=== PATIENT | female | born 1970 | race Caucasian/White ===

== ENCOUNTER 2017-02-25 09:34 | Day surgery (SDC) | payer BC ==
--- NOTE | 2017-02-25 06:39 | History and Physical Report ---
DATE: 02/25/2017. CHIEF COMPLAINT AND HISTORY OF CHIEF COMPLAINT: This patient presents with a postlaminectomy radiculitis. Diagnostics confirmed fusion of the lumbar spine. Due to the failure of all therapies, a spinal cord stimulation trial was conducted on 01/21/2017 with greater than 75 percent pain control. Due to the failure of all therapies and the success of the trial, she presents for implantation of a permanent system. PAST MEDICAL HISTORY: Noncontributory. PAST SURGICAL HISTORY: Lumbar laminectomy. EMPLOYMENT STATUS: She works records custodian. MEDICATIONS ON ADMISSION: To be provided. ALLERGIES: None. REVIEW OF SYSTEMS: The patient is appropriate and in no acute distress. The remainder of the systems review shows degenerative arthritis. SOCIAL HISTORY: Caffeine. FAMILY HISTORY: Hypertension, cancer. PHYSICAL EXAMINATION: General: Height is 5 feet, 6 inches. Weight is 200 pounds. Vital Signs: Not available. HEENT: Within normal limits. Lungs: Clear. Heart: Regular rate and rhythm. Abdomen: Nontender. Musculoskeletal: Examination of the musculoskeletal system shows diffuse tenderness throughout the lumbar spine. Range of motion causes primary pain into both legs. Ambulation: No assistive device utilized. Neurologic: Cranial nerves are intact. IMPRESSION: 1. POSTLUMBAR LAMINECTOMY SYNDROME, ICD-10 CODE M96.1. 2. LUMBAR RADICULITIS, ICD-10 CODE M54.16 AND M54.17. PLAN: The patient is here for implantation of a permanent spinal cord stimulator due to the failure of all therapy and the success of the trial. The procedure will be considered outpatient, although an overnight stay will be evaluated. The potential risks, side effects, and complications have all been carefully reviewed including spinal cord injury, nerve root injury, dural puncture, and headache. The patient consents and agrees. JOVANY CEVALLOS D.O. Date & Time JOB NUMBER: [id number] cc: Ashley Sarmiento
[~2017-02-25 09:34] MED LIST: ACETAMINOPHEN 1,000 MG/100 ML BTL IV ONE; CEFAZOLIN 2 Gram 2 GM/50 ML BAG IVPB ONE; FAMOTIDINE 20MG TABLET PO ONE; MECLIZINE 25 MG TABLET PO ONE; METOCLOPRAMIDE 10 MG TABLET PO ONE
[2017-02-25] MEDS ORDERED: DIPHENHYDRAMINE HCL 25 MG CAPSULE PO PRN ×2 (13:57)
[2017-02-25] MEDS ORDERED: SENNOSIDES/DOCUSATE SODIUM UD CAPSULE PO PRN ×2 (13:57)
[2017-02-25] MEDS ORDERED: METOCLOPRAMIDE HCL 10 MG/2 ML VIAL IVP PRN (13:57)
[2017-02-25] MEDS ORDERED: ACETAMINOPHEN 325 MG TAB PO PRN ×2 (13:57)
[2017-02-25] MEDS ORDERED: HYDROMORPHONE HCL 1 MG/ML CPJ IM PRN (13:57)
[2017-02-25] MEDS ORDERED: HYDROMORPHONE HCL 2 MG/ML VIAL IM PRN (13:57)
[2017-02-25] MEDS ORDERED: TEMAZEPAM 15 MG CAPSULE PO PRN ×2 (13:57)
[2017-02-25] MEDS ORDERED: DIPHENHYDRAMINE HCL IV 50 MG/ML VIAL IVP PRN ×2 (13:57)
[2017-02-25] MEDS ORDERED: AL HYDROX/MAG HYDROX 30ML UD PO PRN (13:57)
[2017-02-25] MEDS ORDERED: OXYCODONE/APAP 10MG-325MG TABLET PO PRN ×2 (13:57)
[2017-02-25] MEDS ORDERED: METOCLOPRAMIDE 10 MG TABLET PO PRN (13:57)
[2017-02-25] MEDS ORDERED: HYDROCODONE/APAP 7.5/325MG TABLET PO PRN ×2 (13:57)
[2017-02-25] MEDS ORDERED: GABAPENTIN 300 MG CAPSULE PO SCH (16:00)
[2017-02-25] MEDS ORDERED: LIDOCAINE 1% W/EPI 1:200,000 MPF 30ML SQ ONE (16:22)
[2017-02-25] MEDS ORDERED: CEFAZOLIN 1G VIAL IM ONE (16:22)
[2017-02-25] MEDS ORDERED: BUPIVACAINE 0.5% W/EPI MPF 30 ML VIAL IVP ONE (16:22)
[2017-02-25] MEDS ORDERED: PROPOFOL 10 MG/ML VIAL IV ONE (16:26)
[2017-02-25] MEDS ORDERED: LIDOCAINE 2% MDV (20MG/ML) 20ML VIAL IV ONE (16:26)
[2017-02-25] MEDS ORDERED: HYDROMORPHONE HCL 2 MG/ML VIAL IV ONE (16:26)
[2017-02-25] MEDS ORDERED: MIDAZOLAM HCL 2MG/2ML VIAL IV ONE (16:26)
[2017-02-25] MEDS ORDERED: FENTANYL PF 100MCG/2ML VIAL IV ONE (16:26)
[2017-02-25] MEDS ORDERED: CEFAZOLIN 2 Gram 2 GM/50 ML BAG IVPB SCH (19:45)
[2017-02-25] MEDS ORDERED: LEVOFLOXACIN 500 MG TABLET PO ONE (19:51)
[2017-02-25] MEDS ORDERED: 0.9 % SODIUM CHLORIDE 10ML SYR IVP SCH (22:00)
--- NOTE | 2017-02-26 07:43 | Operative Note - Ferro ---
DATE OF SURGERY: 02/25/2017. PREOPERATIVE DIAGNOSES: 1. POSTLUMBAR LAMINECTOMY SYNDROME, ICD-10 CODE M96.1. 2. LUMBAR RADICULITIS, ICD-10 CODE M54.16 AND M54.17. POSTOPERATIVE DIAGNOSES: 1. POSTLUMBAR LAMINECTOMY SYNDROME, ICD-10 CODE M96.1. 2. LUMBAR RADICULITIS, ICD-10 CODE M54.16 AND M54.17. OPERATION: 1. FLUOROSCOPICALLY GUIDED EPIDURAL ACCESS, LEFT T12-L1, PLACEMENT OF SPINAL CORD STIMULATOR LEAD 1, [employer] INFINION 16 WITH 6 ELECTRODES POSITIONED AT LEFT T-10. 2. FLUOROSCOPICALLY GUIDED EPIDURAL ACCESS, LEFT AT L1-2, PLACEMENT OF SPINAL CORD STIMULATOR LEAD 2, [employer] 16 WITH 6 ELECTRODES POSITIONED AT RIGHT T-10. 3. COMPLEX PROGRAMMING OF LEAD 1 OVER 20 MINUTES FOLLOWED BY COMPLEX PROGRAMMING OF LEAD 2 OVER 20 MINUTES. 4. INCISION, SUBCUTANEOUS DISSECTION, AND ANCHORING OF LEAD 1 AND LEAD 2 TO THE SUPRASPINOUS FASCIA USING A [employer] LOCKING ANCHOR. 5. INCISION, SUBCUTANEOUS DISSECTION, AND CREATION OF SUBCUTANEOUS POUCH AT THE LEFT POSTERIOR GLUTEAL MARGIN FOR PLACEMENT OF GENERATOR IDENTIFIED [employer] PROGRAMMABLE RECHARGEABLE. 6. TUNNELING BETWEEN POUCHES, PLACEMENT OF THE EXTERNAL PORTIONS OF LEAD 1 AND LEAD 2 INTO THE GENERATOR POUCH; EACH LEAD INTERFACED WITH THE GENERATOR. 7. PLACEMENT OF GENERATOR POUCH, SECURING TO POSTERIOR FASCIA USING NONABSORBABLE SUTURE. PLACEMENT OF LEADS INTO THE POUCH. CLOSURE OF BOTH INCISIONS WITH VICRYL FOR THE FASCIA AND SUBCUTICULAR VICRYL FOR THE SKIN. DERMABOND CLOSURE. 8. COMPLEX RECOVERY ROOM PROGRAMMING, EXTERNAL GENERATOR HOME USE, TWO STIMULATORS, 20 MINUTES. SURGEON: Raheem Colin D.O. ANESTHESIA: Local sedation. ANESTHESIA PROVIDER: Freddy Limon CRNA INDICATION: This patient presents with a history of intractable lumbar radiculitis. Due to the failure of therapy, a spinal cord stimulator trial was conducted with 75 to 80 percent pain control. Due to the failure of all therapy and the success of the trial, she is here for implantation of a permanent system. PROCEDURE: Intravenous line, vital sign monitoring, and intravenous sedation. Prepped and draped with sterile technique. The epidural interspace on the left at 12-1 and 1-2 were marked and infiltrated. Two separate curved-access Epimed needles were placed with loss of resistance. At 12-1 a spinal cord stimulator lead 1, a [employer] Infinion 16 with 6 electrodes was positioned to the left of midline at T-10. At the epidural access left at 1-2, spinal cord stimulator lead 2, a [employer] Infinion 16 with 6 electrodes was positioned right at T-10. Complex programming of lead 1 was accomplished over 20 minutes. This was followed by complex programming of lead 2 over 20 minutes. This ultimately resulted in patterns of stimulation across the back and into the legs. The patient indicated we were in all of the areas of pain. She was given the options to implant or remove, and she opted to implant. Questions were repeated with the same response. The skin above and below both needles was infiltrated. An incision was made and subcutaneous dissection of the supraspinous fascia was conducted. After the needle was removed, each lead was anchored to the supraspinous fascia with a K[place]oya locking anchor with nonabsorbable suture. A the left posterior gluteal margin, a site picked by the patient for the generator, the skin was infiltrated. An incision was made and subcutaneous dissection was conducted to form a pouch of suitable size and depth for the generator. Antibiotic irrigation and Bovie for hemostasis. A tunneling tool was used to carry the two leads into the generator pouch. Each lead was interfaced with the generator. The generator was placed in the pouch and was secured to the fascia with nonabsorbable suture. Both pouches were then closed with Vicryl to the fascia and subcuticular Vicryl for the skin. Dermabond closure. The patient was transported to the recovery room stable, showing no side effects from the procedure or the sedation. In the recovery room, complex programming of the generator was performed over 20 minutes to re-establish stimulation and pain control to all of the appropriate areas. She was instructed on the use of the system and was provided with information. She was then prepared for discharge. DISCHARGE INSTRUCTIONS: 1. The site is to remain clean and dry, although Dermabond will allow showering. 2. Standard medications to be resumed including Levaquin the antibiotic 500 mg once a day for 14 days. 3. The patient will be seen in the office in five to seven days to evaluate the incision. Until then, her activity level should stay low. 4. All other instructions were provided, numbers to contact and possible problems were given. RAHEEM COLIN D.O. Date & Time JOB NUMBER: [id number] cc: Ashley Sarmiento
--- NOTE | 2017-02-27 09:32 | RADIOLOGY REPORT ---
EXAM: AP LUMBAR SPINE HISTORY: POSTOP. TECHNIQUE: An AP portable view of the lumbar spine was obtained. Comparison: None. FINDINGS: There are two stimulating wires with the proximal tips projecting over the T11 vertebral body. Correlate with intraoperative findings. IMPRESSION: STIMULATING WIRES IN PLACE. JOB NUMBER: [id number] MTDD
== END 2017-02-25 20:00 | disposition home or self-care (01) ==
LOC: SUR 09:34 → MEDSURG 14:12 → SUR 20:00
PROVIDERS: ATTEND Pain Medicine Interventional Pain Medicine
DX: M54.16 Radiculopathy, lumbar region (principal); M54.17 Radiculopathy, lumbosacral region
CPT/HCPCS: 63685; 63650 ×2; 01936; 95972; 81025; 72020; J3010; J1170; J0690; J2765

== ENCOUNTER 2017-07-22 10:20 | Day surgery (SDC) | payer BC ==
--- NOTE | 2017-07-22 09:09 | History and Physical - Ferro ---
CHIEF COMPLAINT/HISTORY OF CHIEF COMPLAINT: This patient presents with history of post laminectomy radiculitis. Due to the failure of therapy she presents today for an implanted spinal catheter infusion trial of Hydromorphone to determine if the implantation of a permanent system can be of any value in pain control. PAST MEDICAL HISTORY: Noncontributory. PAST SURGICAL HISTORY: Lumbar spinal surgery and spinal cord stimulator. MEDICATIONS ON ADMISSION: List to be provided. ALLERGIES: None. FAMILY/PSYCHOSOCIAL HISTORY: Social history - Positive for caffeine. Family history - Positive for hypertension and cancer. SYSTEMS REVIEW: The patient is appropriate in no acute distress. The remainder of the systems review is positive for arthritis. PHYSICAL EXAMINATION: Height is 5'7", weight is 260. No vital signs. HEENT: Within normal limits. LUNGS: Clear. HEART: Regular rate and rhythm. ABDOMEN: Nontender. MUSCULOSKELETAL: Examination of the musculoskeletal system shows diffuse tenderness in the lumbar spine adjacent to laminectomy scar. Range of motion does produce pain throughout the low back and hip area. Lower extremity functionality shows pain across a L5-S1 and L4-L5 pattern. Ambulation - No assistive device utilized. Motor and sensory field functionality is intact. No deficits noted. NEUROLOGIC: Cranial nerves are intact. IMPRESSION: 1. POST LUMBAR LAMINECTOMY SYNDROME, ICD-10 CODE M96.1. 2. LUMBAR RADICULITIS, ICD-10 CODE M54.16 AND M54.17. PLAN: The patient is here for an implanted spinal catheter infusion trial of Hydromorphone to determine if the implantation of a permanent system would be of any value in pain control. The patient understands an incision will be made , a spinal catheter will be implanted which will help minimize the number of instrumentations into the spine reducing the potential for spinal cord injury. The implanted catheter technique along with an epidural blood patch will help reduce the incidence of spinal headache. The risks, side effects, complications , nerve root injury, spinal cord injury, paralysis, and headache have all been discussed and reviewed. We will consider the procedure outpatient, although an overnight stay will be evaluated. JOB NUMBER: [id number] [facility]
[~2017-07-22 10:20] MED LIST changes: +HYDROMORPHONE PF 2MG/ML AMP 0.008 MG in 0.9 % SODIUM CHLORIDE 10ML VIA 0.996 ML IV ONE; +HYDROMORPHONE PF 2MG/ML AMP 4 MG in 0.9 % SODIUM CHLORIDE 500ML 498 ML IV ONE
[2017-07-22] MEDS ORDERED: HYDROMORPHONE HCL 2 MG/ML VIAL IV ONE (10:21)
[2017-07-22] MEDS ORDERED: ONDANSETRON HCL IV 4 MG/2 ML VIAL IVP ONE (10:21)
[2017-07-22] MEDS ORDERED: LIDOCAINE 2% MDV (20MG/ML) 20ML VIAL IV ONE (10:21)
[2017-07-22] MEDS ORDERED: PROPOFOL 10 MG/ML VIAL IV ONE (10:21)
[2017-07-22] MEDS ORDERED: CEFAZOLIN 1G VIAL IM ONE (10:21)
[2017-07-22] MEDS ORDERED: FENTANYL PF 100MCG/2ML VIAL IV ONE (10:21)
[2017-07-22] MEDS ORDERED: MIDAZOLAM HCL 2MG/2ML VIAL IV ONE (10:21)
[2017-07-22] MEDS ORDERED: BUPIVACAINE 0.5% W/EPI MPF 30 ML VIAL IVP ONE (10:21)
[2017-07-22] MEDS ORDERED: LIDOCAINE 1% W/EPI 1:200,000 MPF 30ML SQ ONE (10:21)
[2017-07-22] MEDS ORDERED: OXYCODONE/APAP 10MG-325MG TABLET PO PRN ×2 (14:43)
[2017-07-22] MEDS ORDERED: NALOXONE 0.4 MG/1 ML VIAL IVP PRN (14:43)
[2017-07-22] MEDS ORDERED: TEMAZEPAM 15 MG CAPSULE PO PRN ×2 (14:43)
[2017-07-22] MEDS ORDERED: METOCLOPRAMIDE 10 MG TABLET PO PRN (14:43)
[2017-07-22] MEDS ORDERED: DIPHENHYDRAMINE HCL IV 50 MG/ML VIAL IVP PRN ×2 (14:43)
[2017-07-22] MEDS ORDERED: METOCLOPRAMIDE HCL 10 MG/2 ML VIAL IVP PRN (14:43)
[2017-07-22] MEDS ORDERED: AL HYDROX/MAG HYDROX 30ML UD PO PRN (14:43)
[2017-07-22] MEDS ORDERED: SENNOSIDES/DOCUSATE SODIUM UD CAPSULE PO PRN ×2 (14:43)
[2017-07-22] MEDS ORDERED: ACETAMINOPHEN 325 MG TAB PO PRN ×2 (14:43)
[2017-07-22] MEDS ORDERED: DIPHENHYDRAMINE HCL 25 MG CAPSULE PO PRN ×2 (14:43)
[2017-07-22] MEDS ORDERED: HYDROCODONE/APAP 7.5/325MG TABLET PO PRN (14:43)
[2017-07-22] MEDS ORDERED: HYDROMORPHONE HCL 1 MG/ML SYRINGE IM PRN (14:43)
[2017-07-22] MEDS ORDERED: HYDROMORPHONE HCL 2 MG/ML VIAL IM PRN (14:43)
[2017-07-22] MEDS: GABAPENTIN 300 MG CAPSULE PO SCH ×2 (16:33→21:40)
[2017-07-22] MEDS: CEFAZOLIN 2 Gram 2 GM/50 ML BAG IVPB SCH (19:51)
[2017-07-22] MEDS: RINGERS SOLUTION,LACTATED 1,000 ML IV SCH ×2 (20:39→21:44)
[2017-07-22] MEDS: HYDROCODONE/APAP 7.5/325MG TABLET PO PRN (21:41)
[2017-07-23] MEDS: CEFAZOLIN 2 Gram 2 GM/50 ML BAG IVPB SCH ×2 (03:22→09:38)
[2017-07-23] MEDS: RINGERS SOLUTION,LACTATED 1,000 ML IV SCH (06:16)
[2017-07-23] MEDS: HYDROCODONE/APAP 7.5/325MG TABLET PO PRN (09:35)
[2017-07-23] MEDS: GABAPENTIN 300 MG CAPSULE PO SCH (09:36)
--- NOTE | 2017-07-23 15:02 | Operative Note - Ferro ---
DATE OF SURGERY: 07/22/17 PREOPERATIVE DIAGNOSES: 1. POST LUMBAR LAMINECTOMY SYNDROME, ICD-10 CODE = M96.1. 2. LUMBAR RADICULITIS, ICD-10 CODE = M54.16 AND M54.17. OPERATION: 1. FLUOROSCOPICALLY-GUIDED ACCESS SPINAL SPACE AT L3/4. PLACEMENT OF THIN- WALLED SPINAL CATHETER TIP T12/L1. 2. DIAGNOSTIC MYELOGRAPHY WITH RADIOLOGIC SUPERVISION AND INTERPRETATION. 3. BOLUS HYDROMORPHONE 0.002 MG SPINAL SPACE. 4. INCISION, SUBCUTANEOUS DISSECTION, AND CREATION OF SUBCUTANEOUS POUCH MIDLINE , REMOVAL OF NEEDLE SECURING CATHETER TO SUPRASPINOUS FASCIA WITH ANCHORING DEVICE AND NONABSORBABLE SUTURE. 5. INCISION, SUBCUTANEOUS DISSECTION, AND CREATION OF SUBCUTANEOUS POUCH AT RIGHT POSTERIOR GLUTEAL MARGIN EVENTUALLY FOR PLACEMENT OF PUMP. SUBCUTANEOUS POUCH FORMED. 6. TUNNELING SPINAL CATHETER INTO POSTERIOR POUCH. INTERFACE SPINAL CATHETER AT POSTERIOR GLUTEAL POUCH WITH SECOND CATHETER COMPONENT RESECTION AND ATTACHMENT WITH CONNECTOR. 7. TUNNELING SECONDARY CATHETER COMPONENT 6 CM SUPERIOR EXITING SKIN. 8. WITH INTERFACE EXTERNAL CATHETER TO INFUSION PUMP SET TO DELIVER HYDROMORPHONE AT 0.08 MG PER DAY. 9. CLOSURE OF MIDLINE INCISION, VICRYL FOR FASCIA, SUBCUTICULAR VICRYL FOR SKIN. CLOSURE OF POSTERIOR GLUTEAL POUCH MARGIN POUCH RUNNING NYLON. 10. EPIDURAL BLOOD PATCH AT L4/5. 20 ML AUTOLOGOUS BLOOD DRAWN STERILE TECHNIQUE , LEFT ANTECUBITAL. 11. TRANSFER PATIENT RECOVERY ROOM FLAT, PILLOW UNDER HEAD AND KNEES, STABLE SHOWING NO SIDE-EFFECTS FROM THE PROCEDURE OR THE SEDATION. SURGEON: JOVANY CEVALLOS D.O. ANESTHESIA: LOCAL SEDATION. ANESTHESIA PROVIDER: ILENE OLIVER CRNA. INDICATION: This patient presents with a post laminectomy radiculitis is here for a spinal infusion trial with Hydromorphone implanted catheter to determine if the implantation of a permanent system would be of any value in pain control. PROCEDURE: Intravenous line, vital sign monitoring, IV sedation, prepped and draped sterile technique. Patient position prone. Sterile prep, sterile technique. Spinal interspace at L3/4 above the laminectomy was marked and infiltrated. A 20-gauge spinal needle paramedian approach beveled with a long axis inserted into the spinal space. With CSF flow, a thin-walled spinal catheter was advanced and positioned T12/L1. Catheter was clamped to stop CSF leak. The skin above and below the needle infiltrate, incision made, and subcutaneous dissection was conducted to the supraspinous fascia. The needle was removed and the catheter was anchored to the supraspinous fascia with an anchoring device and nonabsorbable suture. There was still CSF coming through the catheter. The catheter was again clamped. Diagnostic myelography was then performed under radiologic supervision and interpretation. Appropriate flow characteristics noted laterally showing the catheter tip T12/L1 with smooth linear flow of contrast. Catheter tip was straightened midline. No pain response on the part of the patient was noted. Catheter was again clamped. 0.002 mg of Hydromorphone was then injected through the catheter into the spinal space as a bolus. Catheter again clamped. There was still CSF noted through the catheter. At the right posterior gluteal margin, a site ultimately for the pump picked by the patient, skin infiltrated, incision made, and subcutaneous dissection was conducted to form a pouch subcutaneously. A tunneling tool was then used to carry the spinal catheter into this posterior pouch. The spinal catheter was then interfaced with a secondary catheter component by way of a connector. The second catheter component was tunneled 6 cm superior from this pouch exiting the skin. The externalized catheter was interfaced with an external pump, which was set to deliver Hydromorphone at 0.08 mg a day. The midline incision was closed Vicryl for fascia, running subcuticular Vicryl for skin. The posterior pouch closed with a running nylon. At L4/5, which was one level below the dural placement for the catheter, the skin infiltrated and a 17-gauge, six-inch Tuohy needle with [id number] into the epidural space. Simultaneously, 20 mL of autologous blood drawn sterile technique from the left antecubital. This blood placed onto the field maintaining sterility. An epidural blood patch was then performed at this level with this blood. Needle removed. Dressing was placed securing the catheter and all connections under sterile dressing to the patient's back. The pump was then set to deliver Hydromorphone at 0.08 mg per day. She was transported to the Recovery Room flat, pillow under head and knees. Stable. No side-effects from the procedure or the sedation. She will stay flat for four hours, slowly elevated for one, and if stable, discharged to home. Otherwise, she will stay overnight for observation. DISCHARGE INSTRUCTIONS: 1. Sites to remain clean and dry. No showering or bathing in any way that would disrupt dressings. If it happens, contact the clinic. 2. Standard medications resumed including Levaquin, the antibiotic, 500 mg once a day for 14 days. 3. Spinal opioid side-effects including; respiratory depression, nausea, vomiting, constipation, urinary retention, light-headedness, or rash have all been discussed and reviewed. All other instructions provided. The patient will be contacted within the next 1-2 days for a possible increase in the office within 3-4 days. A total of three increases will be scheduled during the two week trial period. The office will contact the patient at home to set up the first reprogramming. All other instructions provided, numbers to contact, problems given. She will then be prepared for discharge. cc: Dr. Ball JOB NUMBER: [id number] MTDD
--- NOTE | 2017-07-23 18:07 | RADIOLOGY REPORT ---
EXAM: SPINE, 1 VIEW HISTORY: PAIN. STIMULATOR PLACEMENT. TECHNIQUE: Portable AP view of the lumbar spine was performed. FINDINGS: Stimulator lead tips are at the T11 level. IMPRESSION: STIMULATOR LEAD TIPS ARE AT THE T11 LEVEL. JOB NUMBER: [id number] MTDD
== END 2017-07-23 10:50 | disposition home or self-care (01) ==
LOC: SUR 10:20 → MEDSURG 13:58 → SUR 07-23 10:50
PROVIDERS: ATTEND Pain Medicine Interventional Pain Medicine
DX: M54.16 Radiculopathy, lumbar region (principal); M54.17 Radiculopathy, lumbosacral region
CPT/HCPCS: 62350; 00630; 81025; 72020; 94760; Q9967; J2405; J3010; J1170 ×2; J0690 ×2; J2765; J7040; J7120

== ENCOUNTER 2017-08-05 09:27 | Day surgery (SDC) | payer BC ==
--- NOTE | 2017-08-05 07:06 | History and Physical Report ---
DATE: 08/04/2017. CHIEF COMPLAINT AND HISTORY OF CHIEF COMPLAINT: This is a patient with a postlaminectomy radiculitis. She has an implanted spinal catheter infusion trial with ongoing hydromorphone with which she has had 75 to 85 percent pain control. Due to the failure of all other therapies and the success of the implanted spinal catheter infusion trial with hydromorphone, she is here for a permanent implant. PAST MEDICAL HISTORY: Unchanged. REVIEW OF SYSTEMS: Unchanged. SOCIAL HISTORY: Unchanged. FAMILY HISTORY: Unchanged. PAST SURGICAL HISTORY: Unchanged. EMPLOYMENT STATUS: Unchanged. MEDICATIONS ON ADMISSION: To be provided. ALLERGIES: Unchanged. PHYSICAL EXAMINATION: Unchanged. Musculoskeletal: Dressings for the implanted catheter trial are all intact. Neurologic: Cranial nerves are intact. IMPRESSION: 1. POST LUMBAR LAMINECTOMY SYNDROME, ICD-10 CODE M96.1. 2. LUMBAR RADICULITIS, ICD-10 CODE M54.16 and M54.17. 3. IMPLANTED SPINAL CATHETER INFUSION TRIAL WITH HYDROMORPHONE. PLAN: The patient is here for removal of the temporary external catheter implant with implant of a permanent pump. This will involve removing all of the external components and interfacing the indwelling catheter with the pump. We will consider this procedure outpatient; although an overnight stay can be evaluated. The potential risks, side effects, and complications have all been carefully reviewed and discussed. All questions have been answered. JOB NUMBER: [id number] cc: Blaine Ball M.D. MTDA[place]
[~2017-08-05 09:27] MED LIST changes: +HYDROMORPHONE HCL 0.032 GM in 0.9 % SODIUM CHLORIDE 10ML VIA 40 ML IV ONE; +HYDROMORPHONE PF 2MG/ML AMP 0.004 MG in 0.9 % SODIUM CHLORIDE 10ML VIA 0.998 ML IV ONE; -HYDROMORPHONE PF 2MG/ML AMP 0.008 MG in 0.9 % SODIUM CHLORIDE 10ML VIA 0.996 ML IV ONE; -HYDROMORPHONE PF 2MG/ML AMP 4 MG in 0.9 % SODIUM CHLORIDE 500ML 498 ML IV ONE
[2017-08-05] MEDS ORDERED: FENTANYL PF 100MCG/2ML VIAL IV ONE (09:28)
[2017-08-05] MEDS ORDERED: HYDROCODONE/APAP 7.5/325MG TABLET PO ONE (09:28)
[2017-08-05] MEDS ORDERED: SCOPOLAMINE 1 PATCH TDSY TD ONE (09:28)
[2017-08-05] MEDS ORDERED: CEFAZOLIN 1G VIAL IM ONE (09:28)
[2017-08-05] MEDS ORDERED: MIDAZOLAM HCL 2MG/2ML VIAL IV ONE (09:28)
[2017-08-05] MEDS ORDERED: BUPIVACAINE 0.5% W/EPI MPF 30 ML VIAL IVP ONE (09:28)
[2017-08-05] MEDS ORDERED: ONDANSETRON HCL IV 4 MG/2 ML VIAL IVP ONE (09:28)
[2017-08-05] MEDS ORDERED: HYDROMORPHONE HCL 2 MG/ML VIAL IV ONE (09:28)
[2017-08-05] MEDS ORDERED: PROPOFOL 10 MG/ML VIAL IV ONE (09:28)
[2017-08-05] MEDS ORDERED: LIDOCAINE 2% MDV (20MG/ML) 20ML VIAL IV ONE (09:28)
[2017-08-05] MEDS ORDERED: LIDOCAINE 1% W/EPI 1:200,000 MPF 30ML SQ ONE (09:28)
--- NOTE | 2017-08-05 16:13 | Operative Note - Ferro ---
DATE OF SURGERY: 08/05/17 PREOPERATIVE DIAGNOSES: 1. POST LUMBAR LAMINECTOMY SYNDROME, ICD-10 CODE = M96.1. 2. INTRACTABLE LUMBAR RADICULOPATHY, ICD-10 CODE = M54.16 AND M54.17. 3. IMPLANTED SPINAL CATHETER INFUSION TRIAL HYDROMORPHONE. OPERATION: 1. FLUOROSCOPICALLY-GUIDED INCISION, SUBCUTANEOUS DISSECTION, AND REMOVAL OF EXTERNAL CATHETER. 2. FLUOROSCOPICALLY-GUIDED INCISION, SUBCUTANEOUS DISSECTION, AND REVISION OF INDWELLING CATHETER INTERFACED WITH SECOND CATHETER COMPONENT BY WAY OF CONNECTOR. 3. INCISION, SUBCUTANEOUS DISSECTION, AND CREATION OF SUBCUTANEOUS POUCH AT RIGHT POSTERIOR GLUTEAL MARGIN FOR PLACEMENT OF PUMP IDENTIFIED [employer] 40 ML PROGRAMMABLE. 4. INTERFACE REVISED CATHETER TO PUMP. PLACEMENT OF PUMP INTO POUCH SECURING TO POSTERIOR FASCIA WITH NONABSORBABLE SUTURE THREE POINT PUMP EYELETS. 5. PLACEMENT OF CURVED 24-GAUGE PAYTON NEEDLE INTO ACCESS PORT ASPIRATION AND CLEARING 1 ML OF CATHETER CONTENTS CLEARING CATHETER OF OPIOID AND CSF MIXTURE. 6. DIAGNOSTIC MYELOGRAPHY WITH RADIOLOGIC SUPERVISION AND INTERPRETATION. 7. PROGRAMMING OF PUMP TO DELIVER CONTINUOUS INFUSION HYDROMORPHONE AT 0.2 MG A DAY. 8. CLOSURE OF INCISION VICRYL FOR FASCIA, RUNNING SUBCUTICULAR VICRYL FOR SKIN. DERMABOND CLOSURE. SURGEON: JOVANY CEVALLOS D.O. ANESTHESIA: LOCAL SEDATION. ANESTHESIA PROVIDER: ONDINA ZURITA CRNA INDICATION: This patient presents with a history of intractable post laminectomy radiculopathy. An implanted spinal catheter infusion trial Hydromorphone, 75% to 85% pain control. Due to the failure of all therapies, she is here for implantation of a permanent pump. PROCEDURE: Intravenous line, vital sign monitoring, IV sedation, prepped, draped, sterile technique. Under imaging, the external spinal catheter was identified. The posterior gluteal margin pouch right suture cut was infiltrated with local, incision made, and subcutaneous dissection was conducted to form a pouch of suitable size and depth for the pump identified as [employer] 40 mL Programmable at the right posterior gluteal margin. With the incision open, the external catheter/internal catheter interface identified. The junction cut, the externalized catheter was removed by pulling away from the incision. The internal catheter was then revised, resected, and interfaced with a second catheter component by way of a connector. The second catheter component was then interfaced to a pump, which was placed onto the field 40 mL Programmable filled Hydromorphone at 1 mg per mL. Antibiotic irrigation and Bovie for hemostasis. The pouch was then widened to accommodate the pump. The pump was then placed into the pouch and secured to the posterior fascia with nonabsorbable suture using three pump eyelets at three points. Antibiotic irrigation and Bovie for hemostasis. A 24-gauge Payton needle was then inserted into the access port and 1 mL of catheter contents was aspirated clearing the interfaced revised catheter to the pump of all CSF and opioid. Diagnostic myelography was then performed through the access port. The resulting flow characteristics with the contrast injected moving through the pump appropriately. The pump catheter connection identified under imaging. There were no kinks, bends, or leaks. The tip of the catheter at T12/L1 identified with smooth myelogram flow characteristics noted. Appropriate functionality noted. With the pump in the pouch, the pouch incision was then closed Vicryl for fascia, running subcuticular Vicryl for skin, Dermabond closure. The pump was then programmed to deliver by continuous infusion Hydromorphone at 0.2 mg per day Hydromorphone. With the Dermabond dressing in place approximating the edges of the wound, she was transported to the Recovery Room stable. No side- effects from the procedure or the sedation. When fully awake and alert, prepared for discharge. DISCHARGE INSTRUCTIONS: 1. Sites remain clean and dry. No showering or bathing in any way that would disrupt dressings. If it happens, contact the clinic. 2. Standard medications resumed. She will continue the Levaquin for 7-10 more days. 3. Spinal opioid side-effects; respiratory depression, nausea, vomiting, constipation, urinary retention, light headedness or rash have all been discussed and reviewed. All other instructions provided, numbers to contact, problems given. At that point, she was prepared for discharge. cc: Quinn Banda JOB NUMBER: [id number] MTDD
== END 2017-08-05 13:05 | disposition home or self-care (01) ==
LOC: SUR 09:27
PROVIDERS: ATTEND Pain Medicine Interventional Pain Medicine
DX: M96.1 Postlaminectomy syndrome, not elsewhere classified (principal); M54.16 Radiculopathy, lumbar region; M54.17 Radiculopathy, lumbosacral region
CPT/HCPCS: 62350; 62362; 62367; 00630; 81025; Q9967; J2405; J3010; J1170 ×2; J0690; C1755